=== PATIENT | female | born 2000 | race Caucasian/White ===

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

== ENCOUNTER 2025-07-22 10:34 | Emergency (ER) | payer SELFPAY ==
[~2025-07-22] VITALS: Ht 160 cm; Wt 68.0 kg
[2025-07-22 10:43] VITALS: O2SAT 100
[2025-07-22] MEDS ORDERED: BO1 TP (11:20)
[2025-07-22] MEDS: TETANUS, DIPHTHERIA, PERTUSSIS VAC/PF 0.5ML (>10YR OLD) IM ONE (11:34)
[2025-07-22] MEDS: BACITRACIN ZINC OINT UDPKT TOP ONE (11:40)
[2025-07-22 11:55] VITALS: BP 110/81; PULSE 68; RESP 18; TEMP 37; O2SAT 100
== END 2025-07-22 12:09 | disposition home or self-care (01) ==
LOC: ER 11:44
DX: S61.011A Laceration without foreign body of right thumb without damage to nail, initial encounter (principal); Z23 Encounter for immunization; W25.XXXA Contact with sharp glass, initial encounter; Y93.89 Activity, other specified; Y92.89 Other specified places as the place of occurrence of the external cause; Y99.8 Other external cause status
CPT/HCPCS: 81025; 90471; 90715; 99283